=== PATIENT | male | born 1985 | race Caucasian/White ===

== ENCOUNTER 2024-10-03 20:43 | Inpatient (IN) ==
[2024-10-03] MEDS: ONDANSETRON INJ 2 MG/ML 2 ML VIAL IV STA (21:35)
[2024-10-03] MEDS: SODIUM CHLORIDE 0.9% 1,000 ML IV ONE (21:35)
[2024-10-03] MEDS: LORazepam 2 MG/1 ML VIAL IV STA (21:35)
[2024-10-03 21:48] LABS: Basophils # (auto) 0.09 K/uL (0.00-0.20); Basophils % (auto) 1.2 %; Eosinophils # (auto) 0.01 K/uL (0.00-0.50); Eosinophils % (auto) 0.1 %; Hematocrit (blood only) 42.2 % (42.0-52.0); Hemoglobin 15.1 g/dl (14.0-18.0); Immature Granulocytes # (auto) 0.02 K/uL (0.01-0.20); Immature Granulocytes % (auto) 0.3 %; Lymphocytes # (auto) 2.47 K/uL (1.20-3.40); Lymphocytes % (auto) 32.6 %; Mean Corpuscular Hemoglobin 31.3 pg (25.0-34.0); Mean Corpuscular Hgb Conc 35.8 g/dL (32.0-36.0); Mean Corpuscular Volume 87.6 fL (80.0-100.0); Mean Platelet Volume 8.8 fL (9.4-12.4); Monocytes # (auto) 0.65 K/uL (0.11-0.59); Monocytes % (auto) 8.6 %; Neutrophils # (auto) 4.34 K/uL (1.40-6.50); Neutrophils % (auto) 57.2 %; Platelet Count 272 K/uL (130-400); RDW Coefficient of Variation 12.4 % (11.5-14.5); RDW Standard Deviation 39.6 fL (36.4-46.3); Red Blood Count 4.82 M/uL (4.70-6.10); White Blood Count 7.58 K/ul (4.8-10.8)
[2024-10-03 21:52] LABS: Partial Thromboplastin Time 26 Seconds (21-31)
[2024-10-03] MEDS: FOLIC ACID 1 MG TAB PO ONE (21:53)
[2024-10-03] MEDS: THIAMINE HCL 100 MG TAB PO ONE (21:54)
[2024-10-03 21:56] LABS: Albumin Globulin Ratio 1.6 (0.9-2); Albumin Level 4.9 gm/dl (3.4-5.0); BUN Creatinine Ratio 11.9 (10-20); Bilirubin,Total 2.1 mg/dl (0.2-1.0); Calcium 10.2 mg/dl (8.6-10.3); Creatinine Clr Calc Pharmacy 132.2 ml/min; Magnesium 1.8 mg/dl (1.7-2.4); Potassium 3.4 mmol/L (3.5-5.1); Total Protein 7.9 gm/dl (6.0-8.3)
[2024-10-03 22:18] LABS: Adenovirus PCR Not Detected (NotDetected); Bordetella parapertussis PCR Not Detected (NotDetected); Bordetella pertussis PCR Not Detected (NotDetected); Chlamydia pneumoniae PCR Not Detected (NotDetected); Coronavirus 229E PCR Not Detected (NotDetected); Coronavirus CoV-2 (COVID19)PCR Not Detected (NotDetected); Coronavirus HKU1 PCR Not Detected (NotDetected); Coronavirus NL63 PCR Not Detected (NotDetected); Coronavirus OC43PCR Not Detected (NotDetected); Human Metapneumovirus PCR Not Detected (NotDetected); Influenza A PCR Not Detected (NotDetected); Influenza B PCR Not Detected (NotDetected); Mycoplasma pneumoniae PCR Not Detected (NotDetected); Parainfluenza Virus 1 PCR Not Detected (NotDetected); Parainfluenza Virus 2 PCR Not Detected (NotDetected); Parainfluenza Virus 3 PCR Not Detected (NotDetected); Parainfluenza Virus 4 PCR Not Detected (NotDetected); Respiratory Syncytial VirusPCR Not Detected (NotDetected); Rhinovirus/Enterovirus PCR Not Detected (NotDetected)
--- NOTE | 2024-10-03 23:39 | Emergency Department Note ---
History of Present Illness General Chief complaint: Alcohol Withdrawal Stated complaint: DEHYDRATED , NAUSEA, SHAKES Time Seen by Provider: 10/03/24 21:04 History of Present Illness This is a 39-year-old male presenting to the emergency department for evaluation of nausea and shakiness. Patient admits that he is an alcoholic and primarily drinks vodka. He states that he has roughly 6 "large" drinks on a daily basis. He decided to stop drinking alcohol completely yesterday, and today began with his current symptoms. He has not had fevers or chills. No history of seizures. He rates his discomfort a 6/10. Home Medications Medication Instructions Recorded Confirmed Type pantoprazole 40 mg tablet,delayed 40 mg PO DAILY #90 tabs 04/29/24 10/03/24 Rx release valsartan 80 mg tablet 80 mg PO DAILY #90 tabs 07/15/24 10/03/24 Rx Allergies Allergy/AdvReac Type Severity Reaction Status Date / Time penicillin V Allergy Mild Rash Verified 10/03/24 23:25 Penicillins Allergy Mild Rash Verified 10/03/24 23:25 Past Med/Surg History Problem List (Updated 10/04/24 @ 00:52 by Jose Lazaro PA-C) Alcohol withdrawal syndrome (Acute) Encounter for vasectomy Hypertension Dyslipidemia GERD (gastroesophageal reflux disease) Medical History Congenital nystagmus Arrhythmia ARRHYTHMIA R/T LYME INFECTION 3 YEARS AGO - TREATED W/ ABX AND RESOLVED - [place] CARDIO History of Lyme disease TREATED Surgical History History of hernia surgery (~2019) History of tooth extraction History of eye surgery Family History Father Family history of diabetes mellitus Diabetes Prostate cancer Mother Cardiomyopathy Other Colon cancer Denies family history of Ovarian cancer Myocardial infarction Breast cancer Social History Smoking Status: Never smoker Second Hand Exposure: No; Do You Dip or Chew Tobacco: No; Hx Alcohol Use: No Hx Substance Use: No Preferred Language: Swazi Communication Ability: Effective Visual Impairment: No Limitations Hearing Ability: Normal Terrazzo Finisher Required: No Beliefs That Will Affect Care: None marital status: Current Living Situation: Spouse and Family Current Living Situation Comment: [place] current occupational status: employed current occupation: [employer] How many Children do You have: 2 Feels Safe at Home: Yes Childhood Exposure to Second-Hand Smoke: Yes Diet: regular caffeine: No during the past year weight has: decreased > 10 lbs Dental Care, Regularly: No Physical Activity Frequency: 5-6 Times per Week Seatbelt Use: always Sunscreen Use: Yes Assistive Devices: Contacts Review of Systems A total of 10 systems reviewed and were otherwise negative Physical Exam Vital Signs Vital Signs - 24 hr 10/03/24 20:45 10/03/24 21:04 10/03/24 21:05 Temperature 36.8 C Temperature Source Oral Pulse Rate 101 H 80 Pulse Rate [Finger] 104 H Pulse Rhythm Pulse Rhythm [Finger] Regular Pulse Strength [Finger] Normal Respiratory Rate 20 22 Respiratory Effort / Characteristics Non-Labored Spontaneous Non-Labored Spontaneous Respiratory Depth Normal Normal Respiratory Pattern Regular Regular Blood Pressure 164/101 H Blood Pressure [Right Arm] 157/100 H Blood Pressure Mean 122 Blood Pressure Mean [Right Arm] 119 Blood Pressure Position Sitting Blood Pressure Position [Right Arm] Lying Pulse Oximetry 96 96 Oxygen Delivery Method Room Air Room Air Sepsis Recent Fever Within 48 Hours No Sepsis New/Unexplained Change in Mental Status N/A Sepsis Action Taken by Nursing No Action Required 10/03/24 21:05 10/03/24 23:00 Temperature Temperature Source Pulse Rate Pulse Rate [Finger] 80 Pulse Rhythm Regular Pulse Rhythm [Finger] Regular Pulse Strength [Finger] Normal Respiratory Rate 22 20 Respiratory Effort / Characteristics Non-Labored Spontaneous Respiratory Depth Normal Respiratory Pattern Regular Blood Pressure Blood Pressure [Right Arm] 134/84 Blood Pressure Mean Blood Pressure Mean [Right Arm] 100 Blood Pressure Position Blood Pressure Position [Right Arm] Lying Pulse Oximetry 98 97 Oxygen Delivery Method Room Air Room Air Sepsis Recent Fever Within 48 Hours Sepsis New/Unexplained Change in Mental Status Sepsis Action Taken by Nursing VITALS: Vitals are noted on the nurse's note and reviewed by myself. Vital signs stable. GENERAL: White male who is tachycardic and diaphoretic. He does not appear well on presentation. He is able to answer questions appropriately. HEAD: Normocephalic atraumatic. EARS: External ear normal. External auditory canals clear, tympanic membranes pearly infante without erythema or effusion bilaterally. EYES: Pupils equal round and reactive to light and accommodation. Conjunctivae without injection, sclerae without icterus. Horizontal nystagmus noted. NOSE: Patent, turbinates without inflammation or discharge. MOUTH: Mucous membranes moist. Tonsils are not enlarged. Pharynx without erythema, blood, or exudate. Uvula midline. Airway patent. NECK: Supple without nuchal rigidity. No lymphadenopathy. No thyromegaly. Cervical spine is nontender. HEART: Regular rate and rhythm without murmurs gallops or rubs. LUNGS: Clear to auscultation bilaterally without wheezes, rales or rhonchi. No retractions or accessory muscle use. ABDOMEN: Positive normal bowel sounds x 4. Soft, nontender, without masses or organomegaly. No guarding or rebound tenderness. MUSCULOSKELETAL: No muscle atrophy, erythema, or edema noted. Full range of motion in all extremities. Patient is tremulous. NEURO: Patient was alert and oriented to person place and time. CN II through XII grossly intact. No focal neurological deficits. GCS 15. Course Administered Medications Discontinued Medications Folic Acid (Folic Acid 1 Mg Tab) 1 mg PO NOW ONE Stop: 10/03/24 21:05 Last Admin: 10/03/24 21:53 Dose: 1 mg Documented By: MEGHNA Sodium Chloride (Nss) 1,000 mls @ 999 mls/hr IV .Q1H1M ONE Stop: 10/03/24 22:04 Last Infusion: 10/03/24 23:42 Dose: Infused Documented By: Admin: 10/03/24 21:35 Dose: 999 mls/hr Documented By: MEGHNA Lorazepam (Lorazepam 2 Mg/1 Ml Vial) 2 mg IV NOW STA Stop: 10/03/24 21:05 Last Admin: 10/03/24 21:35 Dose: 2 mg Documented By: MEGHNA Ondansetron HCl (Ondansetron Inj 2 Mg/Ml 2 Ml Vial) 4 mg IV NOW STA Stop: 10/03/24 21:05 Last Admin: 10/03/24 21:35 Dose: 4 mg Documented By: MEGHNA Thiamine HCl (Thiamine Hcl 100 Mg Tab) 100 mg PO NOW ONE Stop: 10/03/24 21:05 Last Admin: 10/03/24 21:54 Dose: 100 mg Documented By: MEGHNA Medical Decision Making Differential Diagnosis Differential diagnosis: Etiologies such as alcohol withdrawal, DTs, alcohol intoxication, toxicological, infection, hypoglycemia, electrolyte abnormalities, cardiac sources, intracerebral event, neurologic, as well as others were entertained. Laboratory Data 10/03/24 21:05 10/03/24 21:05 Lab Results 10/03/24 10/03/24 Range/Units 21:05 21:10 WBC 7.58 (4.8-10.8) K/ul RBC 4.82 (4.70-6.10) M/uL Hgb 15.1 (14.0-18.0) g/dl Hct 42.2 (42.0-52.0) % MCV 87.6 (80.0-100.0) fL MCH 31.3 (25.0-34.0) pg MCHC 35.8 (32.0-36.0) g/dL RDW Std Deviation 39.6 (36.4-46.3) fL RDW Coeff of Melba 12.4 (11.5-14.5) % Plt Count 272 (130-400) K/uL MPV 8.8 L (9.4-12.4) fL Immature Gran % (Auto) 0.3 % Neut % (Auto) 57.2 % Lymph % (Auto) 32.6 % [place] % (Auto) 8.6 % Eos % (Auto) 0.1 % Baso % (Auto) 1.2 % Neut # (Auto) 4.34 (1.40-6.50) K/uL Lymph # (Auto) 2.47 (1.20-3.40) K/uL [place] # (Auto) 0.65 H (0.11-0.59) K/uL Eos # (Auto) 0.01 (0.00-0.50) K/uL Baso # (Auto) 0.09 (0.00-0.20) K/uL Immature Gran # (Auto) 0.02 (0.01-0.20) K/uL PT 11.0 (9.0-12.0) Seconds INR 1.0 (0.9-1.1) APTT 26 (21-31) Seconds PTT Ratio 1.0 Sodium 138 (136-145) mmol/L Potassium 3.4 L (3.5-5.1) mmol/L Chloride 96 L (98-107) mmol/L Carbon Dioxide 24 (21-32) mmol/L Anion Gap 18 H (3-11) BUN 10 (6-23) mg/dl Creatinine 0.84 (0.6-1.4) mg/dl Est Cr Clr Drug Dosing 132.2 ml/min eGFR 115.19 BUN/Creatinine Ratio 11.9 (10-20) Glucose 92 (70-99(Fasting)) mg/dl Calcium 10.2 (8.6-10.3) mg/dl Magnesium 1.8 (1.7-2.4) mg/dl Total Bilirubin 2.1 H (0.2-1.0) mg/dl AST 49 H (13-39) U/L ALT 73 H (7-52) U/L Alkaline Phosphatase 68 (34-104) U/L Total Protein 7.9 (6.0-8.3) gm/dl Albumin 4.9 (3.4-5.0) gm/dl Globulin 3.0 (2.5-4.0) gm/dl Albumin/Globulin Ratio 1.6 (0.9-2) Lipase 24 (11-82) U/L Ethyl Alcohol mg/dL 32.6 H (<10.0) mg/dl Adenovirus (PCR) Not Detected (NotDetected) B. pertussis DNA (PCR) Not Detected (NotDetected) B.parapertussis DNA PCR Not Detected (NotDetected) C. pneumoniae DNA (PCR) Not Detected (NotDetected) Coronavirus OC43 (PCR) Not Detected (NotDetected) Coronavirus HKU1 (PCR) Not Detected (NotDetected) Coronavirus 229E (PCR) Not Detected (NotDetected) SARS-CoV-2 (PCR) Not Detected (NotDetected) Coronavirus NL63 (PCR) Not Detected (NotDetected) Human Metapneumovir PCR Not Detected (NotDetected) Influenza Type A (PCR) Not Detected (NotDetected) Influenza Type B (PCR) Not Detected (NotDetected) M. pneumoniae (PCR) Not Detected (NotDetected) Parainfluenza 1 (PCR) Not Detected (NotDetected) Parainfluenza 2 (PCR) Not Detected (NotDetected) Parainfluenza 3 (PCR) Not Detected (NotDetected) Parainfluenza 4 (PCR) Not Detected (NotDetected) RSV (PCR) Not Detected (NotDetected) Entero/Rhino (PCR) Not Detected (NotDetected) MDM Narrative Physical exam and history were performed. Nursing notes, EMR, and Medication List were personally reviewed. No social concerns were identified as barriers to patients care. History provided was provided by the Patient and female weapons engineer at bedside. Patient appears to have shakiness with nausea after stopping alcohol consumption yesterday. Patient is concerning with vital signs, and he does not appear well on presentation. IV access was established and labs were obtained. He was hydrated with normal saline and given IV Zofran and IV Ativan. He was given oral thiamine and oral folic acid. Patient's blood work is as above and was reviewed. He does not have a significantly elevated white blood cell count, gross anemia, or significant electrolyte imbalance. He does have some elevation of his LFTs, much of which is chronic. Alcohol is detectable at 32. Lipase is normal. On reevaluation the patient did have improvement of symptoms with fluids and medication as above. Escalation of care was considered, and is felt to be necessary as patient is high risk for DTs and withdrawal seizures. The case was discussed with my attending, as well as the on-call hospitalist, who agreed to evaluate the patient here in the ER. Please see the hospitalist dictation for further patient course, plan, and disposition. The chart was completed utilizing [email or web address] Speech Voice Recognition Software. Grammatical errors, random word insertions, pronoun errors, and incomplete sentences are an occasional consequence of this system due to software limitations, ambient noise, and hardware issues. Any formal questions or concerns about the content, text, or information contained within the body of this dictation should be directly addressed to the provider for clarification. Impression & Plan Alcohol withdrawal syndrome Discharge Plan Visit Data Chief Complaint: Alcohol Withdrawal Stated Complaint: DEHYDRATED , NAUSEA, SHAKES ED Provider: Israel Araujo ED Midlevel Provider: Jose Lazaro Discharge Problem: Alcohol withdrawal syndrome Forms Stand Alone Forms: My [facility], Suicide Prevention Resources Prescriptions Prescriptions: No Action pantoprazole 40 mg tablet,delayed release (DR/EC) 40 mg PO DAILY Qty: 90 3RF valsartan 80 mg tablet 80 mg PO DAILY Qty: 90 3RF Referrals Referrals: Alek Mendez DO [Primary Care Provider] -
--- NOTE | 2024-10-04 00:10 | History & Physical Report ---
Date of Service October 04, 2024 Assessment & Plan (1) Alcohol use disorder: (2) Alcohol withdrawal syndrome: (3) Hypertension: (4) GERD (gastroesophageal reflux disease): (5) Hypokalemia: (6) Transaminitis: Plan 39 yo male PMHx HTN, HLD, GERD, EtOH use disorder admitted for EtOH withdraw #EtOH use disorder/EtOH withdraw AWSS protocol with PRN Ativan Folic acid 1mg daily Thiamine 100mg daily Multivitamin Zofran PRN Discuss alcohol cessation/harm reduction strategies prior to discharge #Hypokalemia replete as indicated #Transaminitis Chronic, improved from prior lab studies CT AP in 02/2024: 1. Severe hepatic steatosis. Small amount of ascites. Small varices and mild splenomegaly raise the possibility of portal hypertension. 2. A few hypodense foci within the liver which are indeterminate but likely benign. These could reflect cysts or less likely hemangiomas. 3. Cholelithiasis No current abdominal pain to indicate need for re-imaging #GERD Continue Protonix #HTN Continue valsartan FENGI: regular diet Code status: full DVT prophylaxis: low risk Isolation: none Disposition: PCU History of Present Illness Primary Care Provider: Alek Mendez, DO 39 yo male PMHx HTN, HLD, GERD, EtOH use disorder admitted for EtOH withdraw. His last drink was approximately 24 hours ago. He was attempting to quit cold turkey but started with tremulousness, diaphoresis and presented to the emergency department for management of his withdraw symptoms. Prior to yesterday he has a long history of drinking a handle of vodka roughly every 4 days. He has had episodes of withdraw in the past. Denies history of withdraw seizures. 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 At the time of admission pt was resting comfortably on stretcher in the ED. States he is feeling better after receiving 2mg Ativan in the ED ED Course: EtOH 38 on admission, potassium 3.4, mild transaminitis (chronic, improved from prior) 2mg IV Ativan x1 Folic acid, thiamine Zofran 1L NSS Allergies Allergy/AdvReac Type Severity Reaction Status Date / Time penicillin V Allergy Mild Rash Verified 10/03/24 23:25 Penicillins Allergy Mild Rash Verified 10/03/24 23:25 Home Medications Medication Instructions Recorded Confirmed Type pantoprazole 40 mg tablet,delayed 40 mg PO DAILY #90 tabs 04/29/24 10/03/24 Rx release valsartan 80 mg tablet 80 mg PO DAILY #90 tabs 07/15/24 10/03/24 Rx Past Med/Surg History Problem List Transaminitis Hypokalemia Alcohol use disorder Alcohol withdrawal syndrome (Acute) Encounter for vasectomy Hypertension Dyslipidemia GERD (gastroesophageal reflux disease) Medical History Congenital nystagmus Arrhythmia ARRHYTHMIA R/T LYME INFECTION 3 YEARS AGO - TREATED W/ ABX AND RESOLVED - [place] CARDIO History of Lyme disease TREATED Surgical History History of hernia surgery (~2019) History of tooth extraction History of eye surgery Family History Father Family history of diabetes mellitus Diabetes Prostate cancer Mother Cardiomyopathy Other Colon cancer Denies family history of Ovarian cancer Myocardial infarction Breast cancer Social History Smoking Status: Never smoker Second Hand Exposure: No; Do You Dip or Chew Tobacco: No; Hx Alcohol Use: No Hx Substance Use: No Preferred Language: Guinean Communication Ability: Effective Visual Impairment: No Limitations Hearing Ability: Normal Ground Mixer Required: No Beliefs That Will Affect Care: None marital status: Current Living Situation: Spouse and Family Current Living Situation Comment: [place] current occupational status: employed current occupation: [employer] How many Children do You have: 2 Feels Safe at Home: Yes Childhood Exposure to Second-Hand Smoke: Yes Diet: regular caffeine: No during the past year weight has: decreased > 10 lbs Dental Care, Regularly: No Physical Activity Frequency: 5-6 Times per Week Seatbelt Use: always Sunscreen Use: Yes Assistive Devices: Contacts Review of Systems Review of Systems: reviewed, per HPI Physical Exam Physical Exam: Constitutional: well-appearing, no acute distress HEENT: NCAT, no conjunctival injection CV: NSR on monitor, extremities well-perfused, no LE edema Resp: no increased WOB GI: nondistended MSK: no gross deformities appreciated Skin: warm, dry, no rash appreciated Neuro: alert, oriented, no focal neurologic deficit appreciated Results & Data Results & Data Vital Signs (Past 12 Hours) Vital Signs Temp Pulse Pulse Resp BP BP Pulse Ox 10/03/24 23:00 80 20 134/84 97 10/03/24 21:05 22 98 10/03/24 21:05 104 H 22 157/100 H 96 10/03/24 21:04 80 10/03/24 20:45 36.8 C 101 H 20 164/101 H 96 O2 Del Method 10/03/24 23:00 Room Air 10/03/24 21:05 Room Air 10/03/24 21:05 Room Air 10/03/24 21:04 10/03/24 20:45 Room Air Laboratory Results Laboratory Results WBC 7.58 K/ul (4.8-10.8) 10/03/24 21:05 RBC 4.82 M/uL (4.70-6.10) 10/03/24 21:05 Hgb 15.1 g/dl (14.0-18.0) 10/03/24 21:05 Hct 42.2 % (42.0-52.0) 10/03/24 21: MCV 87.6 fL (80.0-100.0) 10/03/24 21: MCH 31.3 pg (25.0-34.0) 10/03/24 21:05 MCHC 35.8 g/dL (32.0-36.0) 10/03/24 21:05 RDW Std Deviation 39.6 fL (36.4-46.3) 10/03/24 21:05 RDW Coeff of Melba 12.4 % (11.5-14.5) 10/03/24 21:05 Plt Count 272 K/uL (130-400) 10/03/24 21: MPV 8.8 fL (9.4-12.4) L 10/03/24 21:05 Immature Gran % (Auto) 0.3 % 10/03/24 21:05 Neut % (Auto) 57.2 % 10/03/24 21: Lymph % (Auto) 32.6 % 10/03/24 21: [place] % (Auto) 8.6 % 10/03/24 21:05 Eos % (Auto) 0.1 % 03/06/25 21:05 Baso % (Auto) 1.2 % 10/03/24 21:05 Neut # (Auto) 4.34 K/uL (1.40-6.50) 10/03/24 21:05 Lymph # (Auto) 2.47 K/uL (1.20-3.40) 10/03/24 21:05 [place] # (Auto) 0.65 K/uL (0.11-0.59) H 10/03/24 21:05 Eos # (Auto) 0.01 K/uL (0.00-0.50) 10/03/24 21:05 Baso # (Auto) 0.09 K/uL (0.00-0.20) 10/03/24 21:05 Immature Gran # (Auto) 0.02 K/uL (0.01-0.20) 10/03/24 21:05 PT 11.0 Seconds (9.0-12.0) 10/03/24 21:05 INR 1.0 (0.9-1.1) 10/03/24 21:05 APTT 26 Seconds (21-31) 10/03/24 21:05 PTT Ratio 1.0 10/03/24 21:05 Sodium 138 mmol/L (136-145) 10/03/24 21:05 Potassium 3.4 mmol/L (3.5-5.1) L 10/03/24 21:05 Chloride 96 mmol/L (98-107) L 10/03/24 21:05 Carbon Dioxide 24 mmol/L (21-32) 10/03/24 21:05 Anion Gap 18 (3-11) H 10/03/24 21:05 BUN 10 mg/dl (6-23) 10/03/24 21:05 Creatinine 0.84 mg/dl (0.6-1.4) 10/03/24 21:05 Est Cr Clr Drug Dosing 132.2 ml/min 10/03/24 21:05 eGFR 115.19 10/03/24 21:05 BUN/Creatinine Ratio 11.9 (10-20) 10/03/24 21:05 Glucose 92 mg/dl (70-99(Fasting)) 10/03/24 21:05 Calcium 10.2 mg/dl (8.6-10.3) 10/03/24 21:05 Magnesium 1.8 mg/dl (1.7-2.4) 10/03/24 21:05 Total Bilirubin 2.1 mg/dl (0.2-1.0) H 10/03/24 21:05 AST 49 U/L (13-39) H 10/03/24 21:05 ALT 73 U/L (7-52) H 10/03/24 21:05 Alkaline Phosphatase 68 U/L (34-104) 10/03/24 21:05 Total Protein 7.9 gm/dl (6.0-8.3) 10/03/24 21:05 Albumin 4.9 gm/dl (3.4-5.0) 10/03/24 21:05 Globulin 3.0 gm/dl (2.5-4.0) 10/03/24 21:05 Albumin/Globulin Ratio 1.6 (0.9-2) 10/03/24 21:05 Lipase 24 U/L (11-82) 10/03/24 21:05 Urine Color [place] 10/04/24 01:45 Urine Appearance Clear (Clear) 10/04/24 01:45 Urine pH 6.0 (4.5-7.5) 10/04/24 01:45 Ur Specific [place] 1.017 (1.000-1.030) 10/04/24 01:45 Urine Protein Negative (Negative) 10/04/24 01:45 Urine Glucose (UA) Negative (Negative) 10/04/24 01:45 Urine Ketones 2+ (Negative) H 10/04/24 01:45 Urine Blood Negative (Negative) 10/04/24 01:45 Urine Nitrite Negative (Negative) 10/04/24 01:45 Urine Bilirubin Negative (Negative) 10/04/24 01:45 Urine Urobilinogen Negative (Negative) 10/04/24 01:45 Ur Leukocyte Esterase Negative (Negative) 10/04/24 01:45 Ethyl Alcohol mg/dL 32.6 mg/dl (<10.0) H 10/03/24 21:05 Adenovirus (PCR) Not Detected (NotDetected) 10/03/24 21:10 B. pertussis DNA (PCR) Not Detected (NotDetected) 10/03/24 21:10 B.parapertussis DNA PCR Not Detected (NotDetected) 10/03/24 21:10 C. pneumoniae DNA (PCR) Not Detected (NotDetected) 10/03/24 21:10 Coronavirus OC43 (PCR) Not Detected (NotDetected) 10/03/24 21:10 Coronavirus HKU1 (PCR) Not Detected (NotDetected) 10/03/24 21:10 Coronavirus 229E (PCR) Not Detected (NotDetected) 10/03/24 21:10 SARS-CoV-2 (PCR) Not Detected (NotDetected) 10/03/24 21:10 Coronavirus NL63 (PCR) Not Detected (NotDetected) 10/03/24 21:10 Human Metapneumovir PCR Not Detected (NotDetected) 10/03/24 21:10 Influenza Type A (PCR) Not Detected (NotDetected) 10/03/24 21:10 Influenza Type B (PCR) Not Detected (NotDetected) 10/03/24 21:10 M. pneumoniae (PCR) Not Detected (NotDetected) 10/03/24 21:10 Parainfluenza 1 (PCR) Not Detected (NotDetected) 10/03/24 21:10 Parainfluenza 2 (PCR) Not Detected (NotDetected) 10/03/24 21:10 Parainfluenza 3 (PCR) Not Detected (NotDetected) 10/03/24 21:10 Parainfluenza 4 (PCR) Not Detected (NotDetected) 10/03/24 21:10 RSV (PCR) Not Detected (NotDetected) 10/03/24 21:10 Entero/Rhino (PCR) Not Detected (NotDetected) 10/03/24 21:10 Supervising Physician Co-Signing Physician Notes Patient seen and examined, chart reviewed, case discussed with Dr. Moy and I agree with the assessment and plan as above. In brief, patient is a 39yo male presenting with EtOH withdrawal On exam he is afebrile, tachycardic No rash MMM, neck supple, +horizontal nystagmus noted +S1/S2, regular, no m/r/g Lungs - CTA, no rales/rhonchi/wheezes Abd - soft, NT/ND Ext - no edema Labs and images reviewed AST=49, ALT=73, Tbili=2.[address] of the abdomen performed in February 2024 which showed severe hepatic steatosis with small ascites, varices, splenomegaly, PH Assessment/Plan EtOH withdrawal - AWSS, thiamine and MVI Hepatic steatosis - liver labs improved from before, INR WNL Remainder as above Resident Activity Tracking Resident Involvement: Resident Care Provided Care Provided: Adult Hospital Medicine (3) Hypertension Hypertension type: primary hypertension Qualified Code(s): I10 - Essential (primary) hypertension
[2024-10-04 02:14] LABS: Appearance Urine Clear (Clear); Bilirubin Urine Negative (Negative); Blood Urine Negative (Negative); Color Urine Orange; Glucose Urine UA Negative (Negative); Ketones Urine 2+ (Negative); Leukocyte Esterase Urine Negative (Negative); Nitrite Urine Negative (Negative); Protein Urine Negative (Negative); Specific Gravity Urine 1.017 (1.000-1.030); Urobilinogen Urine Negative (Negative)
[2024-10-04] MEDS ORDERED: MAGNESIUM HYDROXIDE SUSP 30 ML UDC PO PRN (02:34)
[2024-10-04] MEDS ORDERED: LORazepam 2 MG/1 ML VIAL IV PRN ×2 (02:34)
[2024-10-04] MEDS ORDERED: ONDANSETRON INJ 2 MG/ML 2 ML VIAL IV PRN (02:34)
[2024-10-04] MEDS ORDERED: POLYETHYLENE (MIRALAX) 17 GM PACK PO PRN (02:34)
[2024-10-04] MEDS ORDERED: Ativan IV Alcohol Withdrawal--Active Protocol IV PRN (02:34)
[2024-10-04] MEDS ORDERED: MELATONIN 3 MG TAB PO PRN (02:34)
[2024-10-04] MEDS ORDERED: ACETAMINOPHEN 500 MG TAB PO PRN (02:34)
[2024-10-04] MEDS: POTASSIUM CHLORIDE CRTAB 20 MEQ TABCR PO STA (02:39)
--- NOTE | 2024-10-04 02:49 | Billing Data ---
Date of Service October 04, 2024 Coding Level of Care Code 78810 INT INP/OBS CARE
[2024-10-04] MEDS: ALUMINUM/MAGNESIUM SUSP 30 ML UDC PO PRN (03:16)
[2024-10-04] MEDS: LORazepam 2 MG/1 ML VIAL IV PRN (07:39)
[2024-10-04] MEDS: MULTIVITAMIN TAB PO SCH (09:17)
[2024-10-04] MEDS: THIAMINE HCL 100 MG TAB PO SCH (09:17)
[2024-10-04] MEDS: FOLIC ACID 1 MG TAB PO SCH (09:18)
[2024-10-04] MEDS: PANTOprazole 40 MG TAB PO SCH (09:18)
[2024-10-04] MEDS: VALSARTAN 80 MG TAB PO SCH (09:18)
[2024-10-04 11:37] LABS: Albumin Globulin Ratio 1.6 (0.9-2); Albumin Level 4.7 gm/dl (3.4-5.0); BUN Creatinine Ratio 12.8 (10-20); Bilirubin,Total 2.9 mg/dl (0.2-1.0); Creatinine Clr Calc Pharmacy 129.1 ml/min; Potassium 3.9 mmol/L (3.5-5.1); Total Protein 7.7 gm/dl (6.0-8.3)
--- NOTE | 2024-10-04 16:54 | Hospitalist Progress Note ---
Date of Service October 04, 2024 Assessment & Plan (1) Alcohol use disorder: (2) Alcohol withdrawal syndrome: (3) Hypertension: (4) GERD (gastroesophageal reflux disease): (5) Hypokalemia: (6) Transaminitis: (7) Alcoholic hepatitis: Plan 39 yo male PMHx HTN, HLD, GERD, EtOH use disorder admitted for EtOH withdraw. #EtOH use disorder/EtOH withdraw/Alc hep/transaminitis DF 2, no imaging performed on admission. CTAP from 02/2024 w/ severe hepatic steatosis. CMP w/ rising bilirubin. 2.9 on 10/04. PT/INR stable on admission. BMP w/ low K 3.4, patient refused PO repletion. Recheck 10/04 showed stabilization of 3.9 AWSS protocol with PRN Ativan Folic acid 1mg daily Thiamine 100mg daily Multivitamin Zofran PRN Discuss alcohol cessation/harm reduction strategies prior to discharge -> pt reports he is to do outpatient counseling. AM CBC, CMP, PT/INR #Hypokalemia Stable at 3.9 Patient refused PO repletion #GERD Continue Protonix #HTN Continue valsartan Code status: full DVT prophylaxis: low risk updated at bedside 10/04. Admission and Anticipated Discharge Date Admission Date: October 04, 2024 Subjective Patient seen and examined this morning. Patient reports tremors in his lower extremity. He denies any additional complaints. Reports that he is feeling fine otherwise. Physical Exam Constitutional: WD/WN, vitals as above Eyes: PERRL, conjunctivae normal, anicteric sclerae Respiratory: normal respiratory effort, lungs clear to auscultation Cardiovascular: RRR, no murmur, no edema Psychiatric: A+Ox3, euthymic affect Results & Data Results & Data Vital Signs (Past 12 Hours) Vital Signs Temp Pulse Pulse Resp BP Pulse Ox Pulse Ox 10/04/24 15:58 37.1 C 94 H 20 147/88 H 94 10/04/24 15:14 96 H 10/04/24 12:37 36.9 C 99 H 18 154/88 H 94 10/04/24 12:20 37.0 C 10/04/24 12:00 109 H 23 134/97 93 10/04/24 10:32 98 10/04/24 07:38 36.6 C 112 H 20 157/99 H 96 10/04/24 07:11 115 H 10/04/24 05:00 109 H 18 129/84 98 O2 Del Method O2 Del Method 10/04/24 15:58 Room Air 10/04/24 15:14 10/04/24 12:37 Room Air 10/04/24 12:20 10/04/24 12:00 Room Air 10/04/24 10:32 Room Air 10/04/24 07:38 Room Air 10/04/24 07:11 10/04/24 05:00 Room Air PG Care Time/CCT Total # of Minutes Spent Total Time Spent with Patient: Total time spent is greater than 50% in coordination of care (as documented) at patient's floor/unit and/or counseling patient: Coding Level of Care Code 31125 SUB INP/OBS CARE 350MIN Diagnoses Alcohol use disorder F10.90 Alcohol withdrawal syndrome F10.939 Primary hypertension I10 Hypertension type: primary hypertension GERD (gastroesophageal reflux disease) K21.9 Hypokalemia E87.6 Transaminitis R74.01 Alcoholic hepatitis K70.10 (3) Hypertension Hypertension type: primary hypertension Qualified Code(s): I10 - Essential (primary) hypertension
[2024-10-05 08:16] LABS: Hematocrit (blood only) 42.6 % (42.0-52.0); Hemoglobin 14.8 g/dl (14.0-18.0); Mean Corpuscular Hgb Conc 34.7 g/dL (32.0-36.0); Mean Corpuscular Volume 89.3 fL (80.0-100.0); Mean Platelet Volume 9.2 fL (9.4-12.4); Platelet Count 193 K/uL (130-400); RDW Coefficient of Variation 12.3 % (11.5-14.5); RDW Standard Deviation 40.2 fL (36.4-46.3); Red Blood Count 4.77 M/uL (4.70-6.10)
[2024-10-05 08:18] LABS: Albumin Globulin Ratio 1.6 (0.9-2); Albumin Level 4.6 gm/dl (3.4-5.0); BUN Creatinine Ratio 12.4 (10-20); Bilirubin,Total 2.8 mg/dl (0.2-1.0); Calcium 9.3 mg/dl (8.6-10.3); Creatinine Clr Calc Pharmacy 124.7 ml/min; Globulin 2.9 gm/dl (2.5-4.0); Potassium 4.2 mmol/L (3.5-5.1); Total Protein 7.5 gm/dl (6.0-8.3)
--- NOTE | 2024-10-05 15:13 | Hospitalist Progress Note ---
Date of Service October 05, 2024 Assessment & Plan (1) Alcohol use disorder: (2) Alcohol withdrawal syndrome: (3) Hypertension: (4) GERD (gastroesophageal reflux disease): (5) Hypokalemia: (6) Transaminitis: (7) Alcoholic hepatitis: Plan 39 yo male PMHx HTN, HLD, GERD, EtOH use disorder admitted for EtOH withdraw. #EtOH use disorder/EtOH withdraw/Alc hep/transaminitis DF 2, no imaging performed on admission. CTAP from 02/2024 w/ severe hepatic steatosis. CMP w/ TB decreasing at 2.8. AST/ALT remain mildly elevated. CBC/PT/INR stable. BMP w/ stable electrolytes/renal function AWSS protocol with PRN Ativan Folic acid 1mg daily Thiamine 100mg daily Multivitamin Zofran PRN Discuss alcohol cessation/harm reduction strategies prior to discharge -> pt reports he is to do outpatient counseling. AM CBC, CMP, PT/INR #Hypokalemia Resolved Stable at 4.2 #GERD Continue Protonix #HTN Continue valsartan Code status: full DVT prophylaxis: low risk Admission and Anticipated Discharge Date Admission Date: October 04, 2024 Subjective Patient seen and examined this morning. Patient resting in bed. Appeared restless/mildly agitated in bed. Patient had expressed wanting to go home. Readdressed stages of withdrawal with him and he is agreeable to continue to stay. Physical Exam Constitutional: WD/WN, vitals as above Eyes: PERRL, conjunctivae normal, anicteric sclerae Respiratory: normal respiratory effort, lungs clear to auscultation Cardiovascular: RRR, no murmur, no edema Psychiatric: A+Ox3, euthymic affect Results & Data Results & Data Vital Signs (Past 12 Hours) Vital Signs Temp Pulse Pulse Resp BP Pulse Ox O2 Del Method 10/05/24 14:03 92 H 10/05/24 10:06 36.7 C 101 H 20 129/82 95 Room Air 10/05/24 07:18 36.7 C 88 16 150/98 H 94 Room Air 10/05/24 07:12 78 10/05/24 03:13 36.7 C 96 H 18 147/92 H 96 Room Air PG Care Time/CCT Total # of Minutes Spent Total Time Spent with Patient: Total time spent is greater than 50% in coordination of care (as documented) at patient's floor/unit and/or counseling patient: Coding Level of Care Code 96740 SUB INP/OBS CARE MIN Diagnoses Alcohol use disorder F10.90 Alcohol withdrawal syndrome F10.939 Primary hypertension I10 Hypertension type: primary hypertension GERD (gastroesophageal reflux disease) K21.9 Hypokalemia E87.6 Transaminitis R74.01 Alcoholic hepatitis K70.10 (3) Hypertension Hypertension type: primary hypertension Qualified Code(s): I10 - Essential (primary) hypertension
--- NOTE | 2024-10-05 16:37 | Electrocardiogram Report ---
Test Reason : Blood Pressure : */* mmHG Vent. Rate : 85 BPM Atrial Rate : 85 BPM P-R Int : 168 ms QRS Dur : 88 ms QT Int : 362 ms P-R-T Axes : 42 32 54 degrees QTcB Int : 430 ms Sinus rhythm with marked sinus arrhythmia Otherwise normal ECG When compared with ECG of 14-Dec-2023 19:39, No significant change was found Confirmed by Rl Carballo ([id number]) on 10/05/2024 4:37:43 PM Referred By: REFERRED SELF Confirmed By: Rl Carballo
[2024-10-06 08:17] VITALS: BP 140/93; PULSE 86; RESP 20; TEMP 98.2; O2SAT 95
--- NOTE | 2024-10-06 10:05 | Discharge Summary ---
Discharge Summary Date of Service October 06, 2024 Principal Dx & Hospital Course #1 = Principal Diagnosis (1) Alcohol use disorder: (2) Alcohol withdrawal syndrome: (3) Hypertension: (4) GERD (gastroesophageal reflux disease): (5) Hypokalemia: (6) Transaminitis: (7) Alcoholic hepatitis: Plan 39 yo male PMHx HTN, HLD, GERD, EtOH use disorder admitted for EtOH withdraw. #EtOH use disorder/EtOH withdraw/Alc hep/transaminitis DF 2, no imaging performed on admission. CTAP from 02/2024 w/ severe hepatic steatosis. CMP w/ TB decreasing at 2.8. AST/ALT remain mildly elevated. CBC/PT/INR stable. BMP w/ stable electrolytes/renal function AWSS protocol with PRN Ativan while hospitalized - has not required Ativan since 10/04. Folic acid 1mg, Thiamine 100mg, Multivitamin daily - continued on discharge. Discuss alcohol cessation/harm reduction strategies prior to discharge -> pt reports he is to do outpatient counseling. #Hypokalemia Resolved Stable at 4.2 #GERD Continue Protonix #HTN Continue valsartan Patient discharged to home 10/06. Admission HPI Per Admitting Provider 39 yo male PMHx HTN, HLD, GERD, EtOH use disorder admitted for EtOH withdraw. His last drink was approximately 24 hours ago. He was attempting to quit cold turkey but started with tremulousness, diaphoresis and presented to the emergency department for management of his withdraw symptoms. Prior to yesterday he has a long history of drinking a handle of vodka roughly every 4 days. He has had episodes of withdraw in the past. Denies history of withdraw seizures. 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 At the time of admission pt was resting comfortably on stretcher in the ED. States he is feeling better after receiving 2mg Ativan in the ED ED Course: EtOH 38 on admission, potassium 3.4, mild transaminitis (chronic, improved from prior) 2mg IV Ativan x1 Folic acid, thiamine Zofran 1L NSS Discharge Exam Constitutional WD/WN, vitals as above Eyes PERRL, conjunctivae normal, anicteric sclerae Respiratory breathing unlabored Cardiovascular well perfused Psychiatric A+Ox3, euthymic affect Discharge Plan Discharge Items Patient Disposition: Home - Self-Care Reason For Visit: ETOH WITHDRAWAL Discharge Diagnosis: Alcohol Withdrawal Activity: Resume your previous activity Non-emergency contact: Primary Care Provider Call non-emergency contact if: you have any medication questions Follow-up/Referrals: Alek Mendez, DO [Primary Care Provider] - (Please call PCP to schedule follow up) Diet: Regular Addtl Attending Provider Instructions: Mr. Barrientos, Leandro were recently hospitalized for alcohol withdrawal. Please see recommendations below regarding your discharge. Please take a multivitamin, thiamine (B1) 100mg, and Folic acid 1mg daily. Please resume the remainder of your outpatient medications. Please follow up with outpatient counseling to aide with your alcohol cessation. If you develop any chest pain, shortness of breath, fever, chills please report back to the ER for further care. Sincerely, Karine Rangel PA-C Pending Studies at Discharge: No Stand-Alone Forms: My [facility] [employer], Smoking Cessation Medications and DC Order Prescriptions: New thiamine HCl (vitamin B1) 100 mg Tablet 100 mg PO QAM Qty: 30 0RF folic acid 1 mg Tablet 1 mg PO QAM Qty: 30 0RF multivitamin with folic acid [Daily-Marisela (with folic acid)] 400 mcg Tablet 1 tab PO QAM Qty: 30 0RF Continued pantoprazole 40 mg tablet,delayed release (DR/EC) 40 mg PO DAILY Qty: 90 3RF valsartan 80 mg tablet 80 mg PO DAILY Qty: 90 3RF Discharge Orders: Discharge Order (Routine); Ordered 10/06/24 Ordered By: Karine Bazan/Other Patient Handouts: Alcohol Withdrawal: What to Expect, Recovering from Addiction, Prevention Men 18 To 39 Admission Data Admit Date/Time: 10/04/24 01:33 Attending Provider: Allen Henson Admit Provider: Jax Moy Primary Care Provider: Alek Mendez Other Providers: Mimi Andrade Other Interventions: Discharge Summary Assessment (RN) Last Done: 10/06/24 10:43 Hospital Stay Data Consultations 10/03/24 23:45 ED Decision to Admit Stat Pending Results Patient Have Any Pending Studies at Discharge: No Discharge Instructions Given to Patient (Per Discharging Provider) Leandro Castillo were recently hospitalized for alcohol withdrawal. Please see recommendations below regarding your discharge. Please take a multivitamin, thiamine (B1) 100mg, and Folic acid 1mg daily. Please resume the remainder of your outpatient medications. Please follow up with outpatient counseling to aide with your alcohol cessation. If you develop any chest pain, shortness of breath, fever, chills please report back to the ER for further care. Sincerely, Karine Rangel PA-C Total Time Total Time Spent Total Time Spent (In Minutes): 45 Total Time Includes: Examination of the Patient, Discharge Planning and Medication Reconciliation Coding Level of Care Code 45870 INP/OBS DISCH >30 MIN Diagnoses Alcohol use disorder F10.90 Alcohol withdrawal syndrome F10.939 Primary hypertension I10 Hypertension type: primary hypertension GERD (gastroesophageal reflux disease) K21.9 Hypokalemia E87.6 Transaminitis R74.01 Alcoholic hepatitis K70.10
[2024-10-06] MEDS: INFLUENZA VACC TS2024-25(6m+)/PF (IIV3) 0.5mL Syr IM ONE (12:48)
--- NOTE | 2024-10-07 23:16 | Electrocardiogram Report ---
Test Reason : Blood Pressure : */* mmHG Vent. Rate : 75 BPM Atrial Rate : 75 BPM P-R Int : 176 ms QRS Dur : 90 ms QT Int : 394 ms P-R-T Axes : 50 23 28 degrees QTcB Int : 439 ms Normal sinus rhythm with sinus arrhythmia Normal ECG When compared with ECG of 03-Oct-2024 20:55, No significant change was found Confirmed by Rl Carballo ([id number]) on 10/07/2024 11:16:07 PM Referred By: REFERRED SELF Confirmed By: Rl Carballo
== END 2024-10-06 13:32 | disposition home or self-care (01) | DRG 897 ==
LOC: ED 20:43 → SUATTDRO 10-04 01:33 → EDINP 10-04 01:33 → 2S 10-04 02:36